=== PATIENT | female | born 1990 ===

== ENCOUNTER 2017-04-17 19:26 | Emergency (ER) | payer OTHER ==
--- NOTE | 2017-04-17 20:30 | ED CLINICAL REPORT ---
Clinical Report - Physicians/Mid Levels [facility] [address] [place] [address] 04/17/2017 19:27 Patient: LATHA RAMIREZ Time Seen: 19:29. Arrived- By private vehicle. Historian- patient. HISTORY OF PRESENT ILLNESS Chief Complaint: HEARING LOSS. This started about 2 weeks ago and is still present. It was gradual in onset and has been constant and waxing/waning. Location- left ear. The pain is described as moderate. No ear drainage. She has had nasal congestion. (Patient reports that she had a cold about 2 weeks ago. Since that time she says that it feels as though she has "water in my left ear." She says that her cold has resolved but that her ear continues to feel plugged). REVIEW OF SYSTEMS No chills, fever, sweats, calf pain or chest pain. No cough, difficulty breathing, pedal edema, palpitations or abdominal pain. No constipation, diarrhea, nausea, vomiting or urinary problems. All systems otherwise negative, except as recorded above. SOCIAL HISTORY Current every day heavy tobacco smoker (cigarette)- less than 1 pack per day. Occasional alcohol use. FAMILY HISTORY No significant family medical history. ADDITIONAL NOTES The nursing notes have been reviewed. PHYSICAL EXAM Vital Signs: 04/17/2017 19:31 BP: 115/68. HR: 95. RR: 16. O2 saturation: 100%. Temp: 97.5 F. Pain level now: 6/10. Have been reviewed. Appearance: Alert. Nose: Nose normal. Throat: Pharynx normal. Ear (left): There is dullness of the tympanic membrane and loss of tympanic membrane landmarks. No erythema of the tympanic membrane, fluid behind the tympanic membrane or bulging of the tympanic membrane. Ear (right): Right ear normal. Neck: Mild right anterior neck and mild left anterior neck lymphadenopathy present. Neck supple. CVS: Normal heart rate and rhythm. Heart sounds normal. Respiratory: No respiratory distress. Breath sounds normal. Abdomen: Soft and nontender. Back: Normal inspection. Skin: Skin warm and dry. Normal skin color. Normal skin turgor. Extremities: Extremities exhibit normal ROM. No calf tenderness. No lower extremity edema. PROGRESS AND PROCEDURES Course of Care: Patient is stable. Patient/family counseled. Old medical records reviewed. Disposition: Discharged. Condition: stable. CLINICAL IMPRESSION Bilateral cervical lymphadenitis Eustachian tube dysfunction INSTRUCTIONS Warnings: Further evaluation is necessary. GENERAL WARNINGS: Return or contact your physician immediately if your condition worsens or changes unexpectedly, if not improving as expected, or if other problems arise. Prescription Medications: Flonase nasal spray: 2 sprays to each nostril once daily for allergies. Dispense one (1) unit. No refills. Substitution is permissible. OTC Medications: Afrin nasal spray (Available over the counter): Take according to label instructions. Sudafed (available over the counter): take according to label instructions. Understanding of the discharge instructions verbalized by patient. Follow-up with: [facility], , , [address], [place] [address] Follow up in seven days. Call for the next available appointment. Follow-up with: Hamilton Vigil MD, ENT, , [facility], [address] [place] [address], [facility], [id number] Follow up in seven if not better. (Electronically signed by Diego Garibay MD 04/25/2017 3:24)
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
--- NOTE | 2017-04-17 20:30 | ED CLINICAL REPORT ---
Clinical Report - Physicians/Mid Levels [facility] [address] [place] [address] 04/17/2017 19:27 Patient: LATHA RAMIREZ Time Seen: 19:29. Arrived- By private vehicle. Historian- patient. HISTORY OF PRESENT ILLNESS Chief Complaint: HEARING LOSS. This started about 2 weeks ago and is still present. It was gradual in onset and has been constant and waxing/waning. Location- left ear. The pain is described as moderate. No ear drainage. She has had nasal congestion. (Patient reports that she had a cold about 2 weeks ago. Since that time she says that it feels as though she has "water in my left ear." She says that her cold has resolved but that her ear continues to feel plugged). REVIEW OF SYSTEMS No chills, fever, sweats, calf pain or chest pain. No cough, difficulty breathing, pedal edema, palpitations or abdominal pain. No constipation, diarrhea, nausea, vomiting or urinary problems. All systems otherwise negative, except as recorded above. SOCIAL HISTORY Current every day heavy tobacco smoker (cigarette)- less than 1 pack per day. Occasional alcohol use. FAMILY HISTORY No significant family medical history. ADDITIONAL NOTES The nursing notes have been reviewed. PHYSICAL EXAM Vital Signs: 04/17/2017 19:31 BP: 115/68. HR: 95. RR: 16. O2 saturation: 100%. Temp: 97.5 F. Pain level now: 6/10. Have been reviewed. Appearance: Alert. Nose: Nose normal. Throat: Pharynx normal. Ear (left): There is dullness of the tympanic membrane and loss of tympanic membrane landmarks. No erythema of the tympanic membrane, fluid behind the tympanic membrane or bulging of the tympanic membrane. Ear (right): Right ear normal. Neck: Mild right anterior neck and mild left anterior neck lymphadenopathy present. Neck supple. CVS: Normal heart rate and rhythm. Heart sounds normal. Respiratory: No respiratory distress. Breath sounds normal. Abdomen: Soft and nontender. Back: Normal inspection. Skin: Skin warm and dry. Normal skin color. Normal skin turgor. Extremities: Extremities exhibit normal ROM. No calf tenderness. No lower extremity edema. PROGRESS AND PROCEDURES Course of Care: Patient is stable. Patient/family counseled. Old medical records reviewed. Disposition: Discharged. Condition: stable. CLINICAL IMPRESSION Bilateral cervical lymphadenitis Eustachian tube dysfunction INSTRUCTIONS Warnings: Further evaluation is necessary. GENERAL WARNINGS: Return or contact your physician immediately if your condition worsens or changes unexpectedly, if not improving as expected, or if other problems arise. Prescription Medications: Flonase nasal spray: 2 sprays to each nostril once daily for allergies. Dispense one (1) unit. No refills. Substitution is permissible. OTC Medications: Afrin nasal spray (Available over the counter): Take according to label instructions. Sudafed (available over the counter): take according to label instructions. Understanding of the discharge instructions verbalized by patient. Follow-up with: [facility], , , [address], [place] [address] Follow up in seven days. Call for the next available appointment. Follow-up with: Hamilton Vigil MD, ENT, , [facility], [address] [place] [address], [facility], [id number] Follow up in seven if not better. (Electronically signed by Diego Garibay MD 04/25/2017 3:24)
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
--- NOTE | 2017-04-25 03:25 | ED MED RECONCILIATION SUMMARY ---
Patient: LATHA RAMIREZ Medication Reconciliation Report [facility] VisitID: [id number] [place] [address] 26y, F Registration Date/Time: 04/17/2017 Weight: 68.0 kg Height/Length: 71 in. BMI: 20.9 ALLERGIES: None The patient's Home Medications are listed below: THE FOLLOWING MEDICATIONS NEED TO BE RECONCILED: Insulin Regular Human Injection Lantus Subcutaneous The source(s) of the original Home Medication information: Not obtained. The following Medications were given to the patient in the Emergency Department: None. The following Medications were prescribed to the patient: Afrin nasal spray (Available over the counter): Take according to label instructions. -- Diego Garibay MD Sudafed (available over the counter): take according to label instructions. -- Diego Garibay MD Flonase nasal spray: 2 sprays to each nostril once daily for allergies. Dispense one (1) unit. No refills. Substitution is permissible. -- Diego Garibay MD
--- NOTE | 2017-04-25 03:25 | ED MAR SUMMARY ---
..... Medication Administration Record [facility] [address] [place], [place] [id number] Patient: LATHA RAMIREZ Visit ID: [id number] 26y, F Weight: 68.0 kg Height/Length: 71 in BMI: 20.9 ALLERGIES: None
--- NOTE | 2017-04-25 03:25 | ED MED RECONCILIATION SUMMARY ---
Patient: LATHA RAMIREZ Medication Reconciliation Report [facility] VisitID: [id number] [place] [address] 26y, F Registration Date/Time: 04/17/2017 Weight: 68.0 kg Height/Length: 71 in. BMI: 20.9 ALLERGIES: None The patient's Home Medications are listed below: THE FOLLOWING MEDICATIONS NEED TO BE RECONCILED: Insulin Regular Human Injection Lantus Subcutaneous The source(s) of the original Home Medication information: Not obtained. The following Medications were given to the patient in the Emergency Department: None. The following Medications were prescribed to the patient: Afrin nasal spray (Available over the counter): Take according to label instructions. -- Diego Garibay MD Sudafed (available over the counter): take according to label instructions. -- Diego Garibay MD Flonase nasal spray: 2 sprays to each nostril once daily for allergies. Dispense one (1) unit. No refills. Substitution is permissible. -- Diego Garibay MD
--- NOTE | 2017-04-25 03:25 | ED DISCHARGE INSTRUCTIONS ---
Patient: LATHA RAMIREZ General Instructions [facility] VisitID: [id number] [address] [place] [address] 26y, F Registration Date/Time: 04/17/2017 Bilateral cervical lymphadenitis Eustachian tube dysfunction INSTRUCTIONS Warnings: Further evaluation is necessary. GENERAL WARNINGS: Return or contact your physician immediately if your condition worsens or changes unexpectedly, if not improving as expected, or if other problems arise. Prescription Medications: Flonase nasal spray: 2 sprays to each nostril once daily for allergies. Dispense one (1) unit. No refills. Substitution is permissible. OTC Medications: Afrin nasal spray (Available over the counter): Take according to label instructions. Sudafed (available over the counter): take according to label instructions. Understanding of the discharge instructions verbalized by patient. Follow-up with: [facility], , , [address], , [place] [id number] Follow up in seven days. Call for the next available appointment. Follow-up with: Hamilton Vigil MD, ENT, , [facility], [address] [place] [address] Follow up in seven if not better. ADDITIONAL INFORMATION Lymph Node Swelling [Local, No Antibiotic Tx] You have a swollen lymph node that is not infected. The lymph nodes are part of the immune system. They are found under the jaw and along the side of the neck, in the armpits and in the groin. A nearby infection or inflammation causes the lymph nodes in that area to swell. They may also be mildly tender. This is normal. Antibiotics are not used for a swollen lymph node that is not infected. Hot compresses and pain control are used to treat this condition. The pain will decrease over the next 7-10 days. The swelling may take several months to go away. Rarely, a bacterial infection occurs inside the lymph node, itself. When this happens the lymph node becomes very painful and the nearby skin gets red and warm. There may also be a fever. If this happens, contact your doctor since antibiotics and sometimes surgical drainage will be needed. Home Care: Make a hot compress by running hot water over a face cloth. Apply the compress to the sore area until it cools off. Repeat this for 20 minutes. Apply the hot compress three times a day for the first three days or until the pain and redness begin to improve. The heat will increase the blood flow to the area and speed the healing process. You may use acetaminophen (Tylenol) or ibuprofen (Motrin, Advil) to control pain and fever, unless another medicine was prescribed for this. Do not use ibuprofen in children under six months of age. [NOTE: If you have chronic liver or kidney disease or ever had a stomach ulcer or GI bleeding, talk with your doctor before using these medicines.] (Aspirin should never be used in anyone under 18 years of age who is ill with a fever. It may cause severe liver damage.) Follow Up with your doctor or this facility as directed. Get Prompt Medical Attention if any of the following occur: Redness over the lymph node Increased swelling or pain in the lymph node Pus or fluid drainage from the lymph node Difficulty breathing or swallowing Fever of 100.4F (38C) oral or higher, not better with fever medication Fluid In The Middle Ear [Child, Serous Otitis] Earaches can happen without an infection. This can occur when air and fluid build up behind the eardrum causing pain and reduced hearing. This is called serous otitis media. It means fluid in the middle ear. It can happen when you have a cold if congestion blocks the passage that drains the middle ear (eustachian tube). It may also occur with nasal allergies, gastric acid reflux (GERD) or after a bacterial middle ear infection. Adenoid glands are located in the back of the throat near the opening of the eustachian tube. They commonly swell in children and can block the eustachian tube. The pain may come and go. You may hear clicking or popping sounds when chewing or swallowing. It often takes from several weeks up to three months for the fluid to clear on its own. Oral pain relievers and ear drops help with pain. Decongestants and antihistamines can be tried but their effect is not always helpful. This condition does not respond to antibiotics since there is no infection. If there has been no improvement after three months, surgery may be used to drain the fluid and insert a small tube in the eardrum to permit continued drainage. Because the middle ear fluid can become infected, it is important to watch for signs of an ear infection (see warning signs below), which may develop later. Home Care: FLUIDS: For infants under 1 year old, continue regular formula or breast feedings. If there is a fever, give oral rehydration solution between feedings. (You can buy this as Pedialyte, Infalyte or Rehydralyte from grocery and drug stores. No prescription is required.). For children over 1 year old, give plenty of fluids like water, juice, 7-Up, vitaly-wale, lemonade, Charles-aid or popsicles. EATING: If your child doesn't want to eat solid foods, it's okay for a few days, as long as she/he drinks lots of fluid. PAIN or FEVER CONTROL: Use acetaminophen (Tylenol) for fever, fussiness or discomfort. In infants over six months of age, you may use ibuprofen (Children's Motrin) instead of Tylenol. [NOTE: If your child has chronic liver or kidney disease or ever had a stomach ulcer or GI bleeding, talk with your doctor before using these medicines.] (Aspirin should never be used in anyone under 18 years of age who is ill with a fever. It may cause severe liver damage.) EAR DROPS: Pain relieving ear drops may be prescribed. Use as directed. If you were not given a prescription for these ear drops, and if ibuprofen alone is not controlling pain, contact your doctor. Follow Up with your doctor or as advised if your child is not feeling better after three days. Get Prompt Medical Attention if any of the following occur: Ear pain gets worse or does not start to improve after three days of treatment Fever of 100.4F (38C) oral or 101.4F (38.5C) rectal or higher, not better with fever medication Unusual fussiness, drowsiness or confusion No tears when crying; "sunken" eyes or dry mouth; no wet diapers for 8 hours in infants, reduced urine output in older children No wet diapers for 8 hours, no tears when crying or dry mouth Headache, neck pain or stiff neck New rash appears Frequent diarrhea or vomiting Fluid or bloody drainage from the ear Convulsion (seizure) Fluticasone Propionate Nasal spray, solution What is this medicine? FLUTICASONE (floo TIK a sone) is a corticosteroid. It helps decrease inflammation in your nose. This medicine is used to treat the symptoms of allergies like sneezing, itching, and runny or stuffy nose. How should I use this medicine? This medicine is for use in the nose. Follow the directions on your prescription label. This medicine works best if used regularly. Do not use more often than directed. Make sure that you are using your nasal spray correctly. Ask you doctor or health care provider if you have any questions. Talk to your farm equipment mechanic apprentice regarding the use of this medicine in children. While this drug may be prescribed for children as young as 4 years old for selected conditions, precautions do apply. What side effects may I notice from receiving this medicine? Side effects that you should report to your doctor or health healthcare social worker as soon as possible: allergic reactions like skin rash, itching or hives, swelling of the face, lips, or tongue changes in vision flu-like symptoms white patches or sores in the mouth or nose Side effects that usually do not require medical attention (report to your doctor or health healthcare social worker if they continue or are bothersome): burning or irritation inside the nose or throat cough headache nosebleed unusual taste or smell What may interact with this medicine? ketoconazole metyrapone some medicines for HIV vaccines What if I miss a dose? If you miss a dose, use it as soon as you remember. If it is almost time for your next dose, use only that dose and continue with your regular schedule. Do not use double or extra doses. Where should I keep my medicine? Keep out of the reach of children. Store at room temperature between 15 and 30 degrees C (59 and 86 degrees F). Throw away any unused medicine after the expiration date. What should I tell my health care provider before I take this medicine? They need to know if you have any of these conditions: infection, like tuberculosis, herpes, or fungal infection recent surgery on nose or sinuses taking corticosteroid by mouth an unusual or allergic reaction to fluticasone, steroids, other medicines, foods, dyes, or preservatives or trying to get breast-feeding What should I watch for while using this medicine? Visit your doctor or health healthcare social worker for regular checks on your progress. Some symptoms may improve within 12 hours after starting use. Check with your doctor or health healthcare social worker if there is no improvement in your condition after 3 weeks of use. Do not come in contact with people who have chickenpox or the measles while you are taking this medicine. If you do, call your doctor right away. Pseudoephedrine Hydrochloride Oral tablet [Abuse Deterrent] What is this medicine? PSEUDOEPHEDRINE (lorena mason e FED rin) is a decongestant. It is used to treat congestion of the nose or sinuses. How should I use this medicine? Take this medicine by mouth with a glass of water. Follow the directions on the package or prescription label. Take your medicine at regular intervals. Do not take your medicine more often than directed. Talk to your farm equipment mechanic apprentice regarding the use of this medicine in children. While this drug may be prescribed for children as young as 6 years of age for selected conditions, precautions do apply. Patients over 65 years old may have a stronger reaction and need a smaller dose. What side effects may I notice from receiving this medicine? Side effects that you should report to your doctor or health healthcare social worker as soon as possible: allergic reactions like skin rash, itching or hives, swelling of the face, lips, or tongue bloody diarrhea with stomach pain breathing problems chest pain confused, agitated, nervous fast, irregular heartbeat feeling faint or lightheaded, falls hallucinations high blood pressure pain, tingling, numbness in the hands or feet trouble passing urine or change in the amount of urine trouble sleeping Side effects that usually do not require medical attention (report to your doctor or health healthcare social worker if they continue or are bothersome): headache loss of appetite nausea, stomach upset What may interact with this medicine? Do not take this medicine with any of the following medications: bromocriptine ergot alkaloids like dihydroergotamine, ergonovine, ergotamine, methylergonovine MAOIs like Carbex, Eldepryl, Marplan, Nardil, and Parnate stimulant medicines for attention disorders, weight loss, or to stay awake This medicine may also interact with the following medications: alcohol atropine bretylium caffeine digoxin linezolid mecamylamine medicines for blood pressure medicines for depression, anxiety, or psychotic disturbances like fluoxetine, sertraline medicines for enlarged prostate medicines for sleep other medicines for cold, cough, or allergy procarbazine reserpine some heart medicines like metoprolol Camelia's Wort What if I miss a dose? If you miss a dose, take it as soon as you can. If it is almost time for your next dose, take only that dose. Do not take double or extra doses. Where should I keep my medicine? Keep out of the reach of children. Store at room temperature between 15 and 25 degrees C (59 and 77 degrees F). Protect from heat and moisture. Throw away any unused medicine after the expiration date. What should I tell my health care provider before I take this medicine? They need to know if you have any of the following conditions: diabetes glaucoma heart disease high blood pressure kidney disease prostate trouble taken an MAOI like Carbex, Eldepryl, Marplan, Nardil, or Parnate in last 14 days thyroid disease trouble passing urine an unusual or allergic reaction to pseudoephedrine, other medicines, foods, dyes, or preservatives or trying to get breast-feeding What should I watch for while using this medicine? Tell your doctor or healthcare professional if your symptoms do not start to get better or if they get worse. See your doctor if you are not better in 7 days or if you have a fever. You have been given the following additional information: Cervical Adenitis, No Antibiotic Earache W/O Infection (Child) Fluticasone Propionate Nasal spray, solution Pseudoephedrine Hydrochloride Oral tablet [Abuse Deterrent] (Electronically signed by Diego Garibay MD 04/25/2017 3:24)
--- NOTE | 2017-04-25 03:25 | ED DISCHARGE INSTRUCTIONS ---
Patient: LATHA RAMIREZ General Instructions [facility] VisitID: [id number] [address] [place] [address] 26y, F Registration Date/Time: 04/17/2017 Bilateral cervical lymphadenitis Eustachian tube dysfunction INSTRUCTIONS Warnings: Further evaluation is necessary. GENERAL WARNINGS: Return or contact your physician immediately if your condition worsens or changes unexpectedly, if not improving as expected, or if other problems arise. Prescription Medications: Flonase nasal spray: 2 sprays to each nostril once daily for allergies. Dispense one (1) unit. No refills. Substitution is permissible. OTC Medications: Afrin nasal spray (Available over the counter): Take according to label instructions. Sudafed (available over the counter): take according to label instructions. Understanding of the discharge instructions verbalized by patient. Follow-up with: [facility], , , [address], , [place] [id number] Follow up in seven days. Call for the next available appointment. Follow-up with: Hamilton Vigil MD, ENT, , [facility], [address] [place] [address] Follow up in seven if not better. ADDITIONAL INFORMATION Lymph Node Swelling [Local, No Antibiotic Tx] You have a swollen lymph node that is not infected. The lymph nodes are part of the immune system. They are found under the jaw and along the side of the neck, in the armpits and in the groin. A nearby infection or inflammation causes the lymph nodes in that area to swell. They may also be mildly tender. This is normal. Antibiotics are not used for a swollen lymph node that is not infected. Hot compresses and pain control are used to treat this condition. The pain will decrease over the next 7-10 days. The swelling may take several months to go away. Rarely, a bacterial infection occurs inside the lymph node, itself. When this happens the lymph node becomes very painful and the nearby skin gets red and warm. There may also be a fever. If this happens, contact your doctor since antibiotics and sometimes surgical drainage will be needed. Home Care: Make a hot compress by running hot water over a face cloth. Apply the compress to the sore area until it cools off. Repeat this for 20 minutes. Apply the hot compress three times a day for the first three days or until the pain and redness begin to improve. The heat will increase the blood flow to the area and speed the healing process. You may use acetaminophen (Tylenol) or ibuprofen (Motrin, Advil) to control pain and fever, unless another medicine was prescribed for this. Do not use ibuprofen in children under six months of age. [NOTE: If you have chronic liver or kidney disease or ever had a stomach ulcer or GI bleeding, talk with your doctor before using these medicines.] (Aspirin should never be used in anyone under 18 years of age who is ill with a fever. It may cause severe liver damage.) Follow Up with your doctor or this facility as directed. Get Prompt Medical Attention if any of the following occur: Redness over the lymph node Increased swelling or pain in the lymph node Pus or fluid drainage from the lymph node Difficulty breathing or swallowing Fever of 100.4F (38C) oral or higher, not better with fever medication Fluid In The Middle Ear [Child, Serous Otitis] Earaches can happen without an infection. This can occur when air and fluid build up behind the eardrum causing pain and reduced hearing. This is called serous otitis media. It means fluid in the middle ear. It can happen when you have a cold if congestion blocks the passage that drains the middle ear (eustachian tube). It may also occur with nasal allergies, gastric acid reflux (GERD) or after a bacterial middle ear infection. Adenoid glands are located in the back of the throat near the opening of the eustachian tube. They commonly swell in children and can block the eustachian tube. The pain may come and go. You may hear clicking or popping sounds when chewing or swallowing. It often takes from several weeks up to three months for the fluid to clear on its own. Oral pain relievers and ear drops help with pain. Decongestants and antihistamines can be tried but their effect is not always helpful. This condition does not respond to antibiotics since there is no infection. If there has been no improvement after three months, surgery may be used to drain the fluid and insert a small tube in the eardrum to permit continued drainage. Because the middle ear fluid can become infected, it is important to watch for signs of an ear infection (see warning signs below), which may develop later. Home Care: FLUIDS: For infants under 1 year old, continue regular formula or breast feedings. If there is a fever, give oral rehydration solution between feedings. (You can buy this as Pedialyte, Infalyte or Rehydralyte from grocery and drug stores. No prescription is required.). For children over 1 year old, give plenty of fluids like water, juice, 7-Up, vitaly-wale, lemonade, Charles-aid or popsicles. EATING: If your child doesn't want to eat solid foods, it's okay for a few days, as long as she/he drinks lots of fluid. PAIN or FEVER CONTROL: Use acetaminophen (Tylenol) for fever, fussiness or discomfort. In infants over six months of age, you may use ibuprofen (Children's Motrin) instead of Tylenol. [NOTE: If your child has chronic liver or kidney disease or ever had a stomach ulcer or GI bleeding, talk with your doctor before using these medicines.] (Aspirin should never be used in anyone under 18 years of age who is ill with a fever. It may cause severe liver damage.) EAR DROPS: Pain relieving ear drops may be prescribed. Use as directed. If you were not given a prescription for these ear drops, and if ibuprofen alone is not controlling pain, contact your doctor. Follow Up with your doctor or as advised if your child is not feeling better after three days. Get Prompt Medical Attention if any of the following occur: Ear pain gets worse or does not start to improve after three days of treatment Fever of 100.4F (38C) oral or 101.4F (38.5C) rectal or higher, not better with fever medication Unusual fussiness, drowsiness or confusion No tears when crying; "sunken" eyes or dry mouth; no wet diapers for 8 hours in infants, reduced urine output in older children No wet diapers for 8 hours, no tears when crying or dry mouth Headache, neck pain or stiff neck New rash appears Frequent diarrhea or vomiting Fluid or bloody drainage from the ear Convulsion (seizure) Fluticasone Propionate Nasal spray, solution What is this medicine? FLUTICASONE (floo TIK a sone) is a corticosteroid. It helps decrease inflammation in your nose. This medicine is used to treat the symptoms of allergies like sneezing, itching, and runny or stuffy nose. How should I use this medicine? This medicine is for use in the nose. Follow the directions on your prescription label. This medicine works best if used regularly. Do not use more often than directed. Make sure that you are using your nasal spray correctly. Ask you doctor or health care provider if you have any questions. Talk to your biologist regarding the use of this medicine in children. While this drug may be prescribed for children as young as 4 years old for selected conditions, precautions do apply. What side effects may I notice from receiving this medicine? Side effects that you should report to your doctor or health health care legal assistant as soon as possible: allergic reactions like skin rash, itching or hives, swelling of the face, lips, or tongue changes in vision flu-like symptoms white patches or sores in the mouth or nose Side effects that usually do not require medical attention (report to your doctor or health health care legal assistant if they continue or are bothersome): burning or irritation inside the nose or throat cough headache nosebleed unusual taste or smell What may interact with this medicine? ketoconazole metyrapone some medicines for HIV vaccines What if I miss a dose? If you miss a dose, use it as soon as you remember. If it is almost time for your next dose, use only that dose and continue with your regular schedule. Do not use double or extra doses. Where should I keep my medicine? Keep out of the reach of children. Store at room temperature between 15 and 30 degrees C (59 and 86 degrees F). Throw away any unused medicine after the expiration date. What should I tell my health care provider before I take this medicine? They need to know if you have any of these conditions: infection, like tuberculosis, herpes, or fungal infection recent surgery on nose or sinuses taking corticosteroid by mouth an unusual or allergic reaction to fluticasone, steroids, other medicines, foods, dyes, or preservatives or trying to get breast-feeding What should I watch for while using this medicine? Visit your doctor or health health care legal assistant for regular checks on your progress. Some symptoms may improve within 12 hours after starting use. Check with your doctor or health health care legal assistant if there is no improvement in your condition after 3 weeks of use. Do not come in contact with people who have chickenpox or the measles while you are taking this medicine. If you do, call your doctor right away. Pseudoephedrine Hydrochloride Oral tablet [Abuse Deterrent] What is this medicine? PSEUDOEPHEDRINE (lorena mason e FED rin) is a decongestant. It is used to treat congestion of the nose or sinuses. How should I use this medicine? Take this medicine by mouth with a glass of water. Follow the directions on the package or prescription label. Take your medicine at regular intervals. Do not take your medicine more often than directed. Talk to your biologist regarding the use of this medicine in children. While this drug may be prescribed for children as young as 6 years of age for selected conditions, precautions do apply. Patients over 65 years old may have a stronger reaction and need a smaller dose. What side effects may I notice from receiving this medicine? Side effects that you should report to your doctor or health health care legal assistant as soon as possible: allergic reactions like skin rash, itching or hives, swelling of the face, lips, or tongue bloody diarrhea with stomach pain breathing problems chest pain confused, agitated, nervous fast, irregular heartbeat feeling faint or lightheaded, falls hallucinations high blood pressure pain, tingling, numbness in the hands or feet trouble passing urine or change in the amount of urine trouble sleeping Side effects that usually do not require medical attention (report to your doctor or health health care legal assistant if they continue or are bothersome): headache loss of appetite nausea, stomach upset What may interact with this medicine? Do not take this medicine with any of the following medications: bromocriptine ergot alkaloids like dihydroergotamine, ergonovine, ergotamine, methylergonovine MAOIs like Carbex, Eldepryl, Marplan, Nardil, and Parnate stimulant medicines for attention disorders, weight loss, or to stay awake This medicine may also interact with the following medications: alcohol atropine bretylium caffeine digoxin linezolid mecamylamine medicines for blood pressure medicines for depression, anxiety, or psychotic disturbances like fluoxetine, sertraline medicines for enlarged prostate medicines for sleep other medicines for cold, cough, or allergy procarbazine reserpine some heart medicines like metoprolol Camelia's Wort What if I miss a dose? If you miss a dose, take it as soon as you can. If it is almost time for your next dose, take only that dose. Do not take double or extra doses. Where should I keep my medicine? Keep out of the reach of children. Store at room temperature between 15 and 25 degrees C (59 and 77 degrees F). Protect from heat and moisture. Throw away any unused medicine after the expiration date. What should I tell my health care provider before I take this medicine? They need to know if you have any of the following conditions: diabetes glaucoma heart disease high blood pressure kidney disease prostate trouble taken an MAOI like Carbex, Eldepryl, Marplan, Nardil, or Parnate in last 14 days thyroid disease trouble passing urine an unusual or allergic reaction to pseudoephedrine, other medicines, foods, dyes, or preservatives or trying to get breast-feeding What should I watch for while using this medicine? Tell your doctor or healthcare professional if your symptoms do not start to get better or if they get worse. See your doctor if you are not better in 7 days or if you have a fever. You have been given the following additional information: Cervical Adenitis, No Antibiotic Earache W/O Infection (Child) Fluticasone Propionate Nasal spray, solution Pseudoephedrine Hydrochloride Oral tablet [Abuse Deterrent] (Electronically signed by Diego Garibay MD 04/25/2017 3:24)
--- NOTE | 2017-04-25 03:25 | ED MAR SUMMARY ---
..... Medication Administration Record [facility] [address], [place] [id number] Patient: LATHA RAMIREZ Visit ID: [id number] 26y, F Weight: 68.0 kg Height/Length: 71 in BMI: 20.9 ALLERGIES: None
== END 2017-04-17 20:35 | disposition home or self-care (01) ==
LOC: ED SRH 19:26
DX: I88.9 Nonspecific lymphadenitis, unspecified (principal); H69.82 Other specified disorders of Eustachian tube, left ear; F17.210 Nicotine dependence, cigarettes, uncomplicated; E11.9 Type 2 diabetes mellitus without complications; Z79.4 Long term (current) use of insulin